=== PATIENT | female | born 1935 ===

== ENCOUNTER → 2017-03-17 | Outpatient (REF) ==
[2017-03-17 20:02] LABS: THYROID STIMULATING HORMONE 0.766 uIU/mL (0.465-4.680)
== END ==
LOC: ZLAB.WCH 19:04
PROVIDERS: Nurse Practitioner Family
DX: Z01.89 Encounter for other specified special examinations (principal)

== ENCOUNTER → 2018-01-01 | Outpatient (REF) | LOC: ZLAB.WCH 09:24 | DX: Z01.89 Encounter for other specified special examinations (principal) ==

== ENCOUNTER → 2018-01-01 | Outpatient (REF) | LOC: ZLAB.WCH 09:35 | DX: Z01.89 Encounter for other specified special examinations (principal) ==

== ENCOUNTER → 2018-01-01 | Outpatient (REF) | LOC: ZLAB.WCH 09:31 | DX: Z01.89 Encounter for other specified special examinations (principal) ==

== ENCOUNTER → 2018-01-02 | Outpatient (REF) | LOC: ZLAB.WCH 11:44 | DX: Z01.89 Encounter for other specified special examinations (principal) ==